=== PATIENT | female | born 1985 | race Caucasian/White ===

== ENCOUNTER 2021-07-15 17:07 | Emergency (ER) | payer SELFPAY ==
[2021-07-15 17:07] VITALS: BP 123/69; PULSE 68; RESP 22; O2SAT 95
--- NOTE | 2021-07-15 17:09 | ED.C_ITS ---
Documented by User: Tacos Dutta DO 07/17/21 06:36 HPI - Psych General: Chief Complaint: Psychiatric Symptoms Stated Complaint: PSYCH EVAL Time Seen by Provider: 07/15/21 17:07 Source: EMS Mode of arrival: EMS Limitations: altered mental status History of Present Illness: 36-year-old female brought in by EMS and physical restraints. She is uncontrollable and unable to redirect her. She was directly moved from the cot to hard restraint bed. She is screaming. She smells strongly of alcohol appears to be significantly intoxicated. EMS had the same experience in route here she was unable to be redirected. She was found underneath a bridge in town. There is no old records and system for her. No evidence of injury at this time. MD complaint: altered mental status Onset (ago): unknown Duration: constant Relieving factors: none Exacerbating factors: none Context: recent alcohol abuse Treatments prior to arrival: physical restraints Review of Systems General: Reports: ROS unobtainable due to mental status [facility] ED PFSH: Medical History (Updated 07/17/21 @ 06:31 by Tacos Dutta DO) Medical history unknown Surgical History (Updated 07/17/21 @ 06:31 by Tacos Dutta DO) Surgical history unknown Social History (Updated 07/17/21 @ 06:32 by Tacos Dutta DO) Smoking and tobacco status: current every day smoker Alcohol intake: current Substance/Drug Use: current Physical Exam Const: GENERAL APPEARANCE: combative ORIENTATION/CONSCIOUSNESS: Yes awake OTHER: Patient babbling incoherently appears acutely intoxicated suspect under the influence of methamphetamines. Patient is in very aggressive and combative tried to bite multiple staff members, myself nursing and security HENMT: COMMON NORMALS: normocephalic and atraumatic HEAD & SCALP: normocephalic and atraumatic Resp: COMMON NORMALS: normal respiratory effort, No retractions, No use of accessory muscles and clear to auscultation bilaterally AUSCULTATION: clear to auscultation bilaterally Cardio: COMMON NORMALS: regular rhythm and No murmurs present (Cardio) RATE: tachycardic RHYTHM: regular rhythm GI: COMMON NORMALS: Soft to palpation and No hepatosplenomegaly present AUSCULTATION: Yes normoactive bowel sounds PALPATION: Yes Soft to palpation, No Tenderness to palpation present (GI), No Guarding due to palpation present (GI) and Yes No hepatosplenomegaly present Extremity: COMMON NORMALS: normal to inspection, capillary refill normal, no clubbing, cyanosis or edema, no calf tenderness and no pedal edema Face to Face: Restrn/Seclusion Events leading up to initiation: Demonstrating self-destructive behavior (cutting, hitting mathew etc.) and Combative/Striking out at staff or others Evaluation of patient's immediate situation: Signs of psychological distress Patient reaction since intervention applied: Continued attempts/displays harmful behavior Recent labs reviewed: No Review of medications: No (Not available) Need for restraint or seclusion is: Continued Attending notified: Yes Course Vital Signs: Vital signs: Vital Signs Pulse Rate 78 07/16/21 03:13 Respiratory Rate 17 07/16/21 03:13 Blood Pressure 114/61 07/16/21 03:13 Pulse Oximetry 97 07/16/21 03:13 MDM - Psych Medical Decision Making On arrival patient was immediately placed in restraints because she was combative and aggressive with staff and could not be redirected she attempted to bite several staff members. She is was able to get out of the restraints several times in security placed a washcloth around her wrist to keep her from pulling out of the restraints and harming herself or others. Initially patient was babbling incoherently. Her clothes were all wet today were removed to prevent hypothermia. Care signed out to Dr. Coles at change of shift. See final notes for diagnosis and disposition. Patient presents here with alcohol intoxication and is homeless. I did observe patient here for 7 hours she is now clinically sober patient was evaluated by Dr. Soto she is not suicidal not homicidal is wanting to go home I feel she is stable for discharge at this time. Lab Data I reviewed the patient's lab results. : 07/15/21 18:47 07/15/21 18:47 Radiology Impressions Chest X-Ray 07/15/21 17:16 IMPRESSION: No acute findings. Head CT 07/15/21 17:16 IMPRESSION: No acute intracranial abnormality. Laboratory Results WBC 8.2 10^3/uL (4.0-10.0) 07/15/21 18:47 RBC 5.70 10^6/uL (4.1-5.3) H 07/15/21 18:47 Hgb 16.5 g/dL (11.5-15.3) H 07/15/21 18:47 Hct 50.9 % (37.0-47.0) H 07/15/21 18:47 MCV 89.3 fl (81-99) 07/15/21 18:47 MCH 28.9 pg (28.0-34.0) 07/15/21 18: MCHC 32.4 g/dL (30.0-36.0) 07/15/21 18:47 RDW 13.0 % (12.1-15.1) 07/15/21 18:47 Plt Count 277 10^3/cmm (130-400) 07/15/21 18: MPV 11.4 fL (7.4-10.4) H 07/15/21 18:47 Neut % (Auto) 60.9 % 07/15/21 18: Lymph % (Auto) 32.8 % 07/15/21 18:47 [place] % (Auto) 4.5 % 07/15/21 18:47 Eos % (Auto) 1.1 % 07/15/21: Baso % (Auto) 0.6 % 07/15/21: Neut # (Auto) 5.00 10^3/uL (1.8-7.7) 07/15/21 18: Lymph # (Auto) 2.7 10^3/uL (0.8-4.8) 07/15/21 18: [place] # (Auto) 0.4 10^3/uL (0.2-0.9) 07/15/21 18:47 Eos # (Auto) 0.1 10^3/uL (0.0-0.8) 07/15/21 18: Baso # (Auto) 0.1 10^3/uL (0.0-0.1) 07/15/21: Nucleated RBC % (auto) 0 % 07/15/21: Nucleated RBCs # 0.0 /100WBC 07/15/21 18: Sodium 142 mmol/L (136-145) 07/15/21 18: Potassium 3.6 mmol/L (3.5-5.1) 07/15/21 18:47 Chloride 105 mmol/L (98-107) 07/15/21 18:47 Carbon Dioxide 20 mmol/L (22-29) L 07/15/21 18:47 Anion Gap 20.6 (5-19) H 07/15/21 18:47 BUN 9 mg/dL (6-20) 07/15/21 18:47 Creatinine 0.6 mg/dL (0.5-0.9) 07/15/21 18:47 GFR Calculation 114.4 mL/min (90-130) 07/15/21 18:47 Glucose 181 mg/dL (65-115) H 07/15/21 18:47 Calculated Osmolality 297 mOsm/kg (285-295) H 07/15/21 18:47 Calcium 9.9 mg/dL (8.5-10.5) 07/15/21 18:47 Total Bilirubin 0.2 mg/dL (0.15-1.2) 07/15/21 18:47 AST 23 U/L (0-32) 07/15/21 18:47 ALT 25 U/L (0-33) 07/15/21 18:47 Alkaline Phosphatase 140 IU/L (35-105) H 07/15/21 18:47 Total Protein 9.8 g/dL (6.6-8.7) H 07/15/21 18:47 Albumin 5.2 g/dL (3.5-5.2) 07/15/21 18:47 Globulin 4.6 g/dL (1.3-4.6) 07/15/21 18:47 HCG, Qual Negative (Negative) 07/15/21 18:47 Urine Color Yellow (Yellow) 07/15/21 18:50 Urine Appearance Clear (CLEAR) 07/15/21 18:50 Urine pH 5 (5-7) 07/15/21 18:50 Ur Specific [place] 1.010 (1.005-1.030) 07/15/21 18:50 Urine Protein Trace (Negative) 07/15/21 18:50 Urine Glucose (UA) Norm (Normal) 07/15/21 18:50 Urine Ketones Negative (Negative) 07/15/21 18:50 Urine Blood Trace (Negative) H 07/15/21 18:50 Urine Nitrate Negative (Negative) 07/15/21 18:50 Urine Bilirubin Neg (Negative) 07/15/21 18:50 Urine Urobilinogen Norm mg/dL (Negative) 07/15/21 18:50 Ur Leukocyte Esterase Negative (Negative) 07/15/21 18:50 Urine RBC 0-4 /hpf (0-2) H 07/15/21 18:50 Urine WBC 0-4 /hpf (0-5) H 07/15/21 18:50 Ur Squamous Epith Cells 5-10 /hpf (0-5) H 07/15/21 18:50 Amorphous Sediment 2+ /hpf 07/15/21 18:50 Urine Bacteria 1+ /hpf (NONE) H 07/15/21 18:50 Salicylates < 0.3 mg/dL (3-10) L 07/15/21 18:47 Urine Opiates Screen Negative ng/mL (Negative) 07/15/21 18:50 Acetaminophen < 5.0 ug/mL (10-30) L 07/15/21 18:47 Ur Barbiturates Screen Negative ng/mL (Negative) 07/15/21 18:50 Ur Phencyclidine Scrn Negative ng/mL (Negative) 07/15/21 18:50 Ur Amphetamines Screen Negative ng/mL (Negative) 07/15/21 18:50 U Benzodiazepines Scrn Negative ng/mL (Negative) 07/15/21 18:50 Urine Cocaine Screen Negative ng/mL (Negative) 07/15/21 18:50 U Marijuana (THC) Screen Negative ng/mL (Negative) 07/15/21 18:50 Ethyl Alcohol 260 mg/dL (0-10) H 07/15/21 18:47 Discharge Plan Discharge Patient Disposition: Home Clinical Impression: Alcohol intoxication Condition: Stable Discharge Orders: Discharge ED (Routine); Ordered 07/16/21 Ordered By: Roberto Carlos Coles Discharge Diet: Advance as tolerated Discharge Activity: Resume usual activity Patient Instructions: Alcohol Intoxication (ED) Coding Level of Care Code 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 Documented by User: Roberto Carlos Coles MD 07/16/21 03:22 HPI - Psych General: Chief Complaint: Psychiatric Symptoms Stated Complaint: PSYCH EVAL Time Seen by Provider: 07/15/21 17:07 [facility] ED PFSH: Medical History (Updated 07/17/21 @ 06:31 by Tacos Dutta DO) Medical history unknown Surgical History (Updated 07/17/21 @ 06:31 by Tacos Dutta DO) Surgical history unknown Social History (Updated 07/17/21 @ 06:32 by Tacos Dutta DO) Smoking and tobacco status: current every day smoker Alcohol intake: current Substance/Drug Use: current Course Vital Signs: Vital signs: Vital Signs Pulse Rate 78 07/16/21 03:13 Respiratory Rate 17 07/16/21 03:13 Blood Pressure 114/61 07/16/21 03:13 Pulse Oximetry 97 07/16/21 03:13 MDM - Psych Medical Decision Making Patient presents here with alcohol intoxication and is homeless. I did observe patient here for 7 hours she is now clinically sober patient was evaluated by Dr. Soto she is not suicidal not homicidal is wanting to go home I feel she is stable for discharge at this time. Lab Data : 07/15/21 18:47 07/15/21 18:47 Radiology Impressions Chest X-Ray 07/15/21 17:16 IMPRESSION: No acute findings. Head CT 07/15/21 17:16 IMPRESSION: No acute intracranial abnormality. Laboratory Results WBC 8.2 10^3/uL (4.0-10.0) 07/15/21 18:47 RBC 5.70 10^6/uL (4.1-5.3) H 07/15/21 18:47 Hgb 16.5 g/dL (11.5-15.3) H 07/15/21 18:47 Hct 50.9 % (37.0-47.0) H 07/15/21 18:47 MCV 89.3 fl (81-99) 07/15/21 18:47 MCH 28.9 pg (28.0-34.0) 07/15/21 18:47 MCHC 32.4 g/dL (30.0-36.0) 07/15/21 18:47 RDW 13.0 % (12.1-15.1) 07/15/21 18:47 Plt Count 277 10^3/cmm (130-400) 07/15/21 18:47 MPV 11.4 fL (7.4-10.4) H 07/15/21 18:47 Neut % (Auto) 60.9 % 07/15/21 18:47 Lymph % (Auto) 32.8 % 07/15/21 18:47 [place] % (Auto) 4.5 % 07/15/21 18:47 Eos % (Auto) 1.1 % 07/15/21 18:47 Baso % (Auto) 0.6 % 07/15/21 18:47 Neut # (Auto) 5.00 10^3/uL (1.8-7.7) 07/15/21 18:47 Lymph # (Auto) 2.7 10^3/uL (0.8-4.8) 07/15/21 18:47 [place] # (Auto) 0.4 10^3/uL (0.2-0.9) 07/15/21 18:47 Eos # (Auto) 0.1 10^3/uL (0.0-0.8) 07/15/21 18:47 Baso # (Auto) 0.1 10^3/uL (0.0-0.1) 07/15/21 18:47 Nucleated RBC % (auto) 0 % 07/15/21 18:47 Nucleated RBCs # 0.0 /100WBC 07/15/21 18:47 Sodium 142 mmol/L (136-145) 07/15/21 18:47 Potassium 3.6 mmol/L (3.5-5.1) 07/15/21 18:47 Chloride 105 mmol/L (98-107) 07/15/21 18:47 Carbon Dioxide 20 mmol/L (22-29) L 07/15/21 18:47 Anion Gap 20.6 (5-19) H 07/15/21 18:47 BUN 9 mg/dL (6-20) 07/15/21 18:47 Creatinine 0.6 mg/dL (0.5-0.9) 07/15/21 18:47 GFR Calculation 114.4 mL/min (90-130) 07/15/21 18:47 Glucose 181 mg/dL (65-115) H 07/15/21 18:47 Calculated Osmolality 297 mOsm/kg (285-295) H 07/15/21 18:47 Calcium 9.9 mg/dL (8.5-10.5) 07/15/21 18:47 Total Bilirubin 0.2 mg/dL (0.15-1.2) 07/15/21 18:47 AST 23 U/L (0-32) 07/15/21 18:47 ALT 25 U/L (0-33) 07/15/21 18:47 Alkaline Phosphatase 140 IU/L (35-105) H 07/15/21 18:47 Total Protein 9.8 g/dL (6.6-8.7) H 07/15/21 18:47 Albumin 5.2 g/dL (3.5-5.2) 07/15/21 18:47 Globulin 4.6 g/dL (1.3-4.6) 07/15/21 18:47 HCG, Qual Negative (Negative) 07/15/21 18:47 Urine Color Yellow (Yellow) 07/15/21 18:50 Urine Appearance Clear (CLEAR) 07/15/21 18:50 Urine pH 5 (5-7) 07/15/21 18:50 Ur Specific [place] 1.010 (1.005-1.030) 07/15/21 18:50 Urine Protein Trace (Negative) 07/15/21 18:50 Urine Glucose (UA) Norm (Normal) 07/15/21 18:50 Urine Ketones Negative (Negative) 07/15/21 18:50 Urine Blood Trace (Negative) H 07/15/21 18:50 Urine Nitrate Negative (Negative) 07/15/21 18:50 Urine Bilirubin Neg (Negative) 07/15/21 18:50 Urine Urobilinogen Norm mg/dL (Negative) 07/15/21 18:50 Ur Leukocyte Esterase Negative (Negative) 07/15/21 18:50 Urine RBC 0-4 /hpf (0-2) H 07/15/21 18:50 Urine WBC 0-4 /hpf (0-5) H 07/15/21 18:50 Ur Squamous Epith Cells 5-10 /hpf (0-5) H 07/15/21 18:50 Amorphous Sediment 2+ /hpf 07/15/21 18:50 Urine Bacteria 1+ /hpf (NONE) H 07/15/21 18:50 Salicylates < 0.3 mg/dL (3-10) L 07/15/21 18:47 Urine Opiates Screen Negative ng/mL (Negative) 07/15/21 18:50 Acetaminophen < 5.0 ug/mL (10-30) L 07/15/21 18:47 Ur Barbiturates Screen Negative ng/mL (Negative) 07/15/21 18:50 Ur Phencyclidine Scrn Negative ng/mL (Negative) 07/15/21 18:50 Ur Amphetamines Screen Negative ng/mL (Negative) 07/15/21 18:50 U Benzodiazepines Scrn Negative ng/mL (Negative) 07/15/21 18:50 Urine Cocaine Screen Negative ng/mL (Negative) 07/15/21 18:50 U Marijuana (THC) Screen Negative ng/mL (Negative) 07/15/21 18:50 Ethyl Alcohol 260 mg/dL (0-10) H 07/15/21 18:47 Discharge Plan Discharge Patient Disposition: Home Clinical Impression: Alcohol intoxication Condition: Stable Discharge Orders: Discharge ED (Routine); Ordered 07/16/21 Ordered By: Roberto Carlos Coles Discharge Diet: Advance as tolerated Discharge Activity: Resume usual activity Patient Instructions: Alcohol Intoxication (ED) Coding Level of Care Code 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
[2021-07-15] MEDS: ziprasidone 20 mg/mL SDV 10 MG IM (17:10)
[2021-07-15] MEDS: LORazepam 2 mg/mL INJ 1 mL IM (17:10)
[2021-07-15] MEDS: diphenhydrAMINE 50 mg/mL SDV 1mL IM (17:11)
--- NOTE | 2021-07-15 17:16 | XRR_ITS ---
PROCEDURE INFORMATION: Exam: XR Chest Exam date and time: 07/15/2021 6:45 PM Age: 36 years old Clinical indication: Cough; Additional info: Dyspnea/cough TECHNIQUE: Imaging protocol: XR of the chest. Views: 1 view. COMPARISON: No relevant prior studies available. FINDINGS: Lungs: Unremarkable. No consolidation. Pleural spaces: Unremarkable. No pleural effusion. No pneumothorax. Heart/Mediastinum: Unremarkable. No cardiomegaly. Bones/joints: Unremarkable. XR/XR chest 1V portable [id number] IMPRESSION: No acute findings.
--- NOTE | 2021-07-15 17:16 | CTR_ITS ---
PROCEDURE INFORMATION: Exam: CT Head Without Contrast Exam date and time: 07/15/2021 6:15 PM Age: 36 years old Clinical indication: Altered mental status/memory loss; Confusion or disorientation; Patient HX: AMS / combative - sedated TECHNIQUE: Imaging protocol: Computed tomography of the head without contrast. Radiation optimization: All CT scans at this facility use at least one of these dose optimization techniques: automated exposure control; mA and/or kV adjustment per patient size (includes targeted exams where dose is matched to clinical indication); or iterative reconstruction. COMPARISON: No relevant prior studies available. RADIATION DOSE METRICS: Total DLP (mGy-cm): 2554.37 FINDINGS: Brain: Normal. No hemorrhage. Unremarkable white matter. No mass effect. Cerebral ventricles: No ventriculomegaly. Paranasal sinuses: Polyp or retention cyst in the right maxillary sinus. Mild mucosal thickening in the maxillary and ethmoid sinuses. No air-fluid level. Mastoid air cells: Visualized mastoid air cells are well aerated. Bones/joints: Unremarkable. No acute fracture. Soft tissues: Unremarkable. CT/CT head wo con* [id number] IMPRESSION: No acute intracranial abnormality.
--- NOTE | 2021-07-15 18:41 | PC.NURSE ---
Restraints placed on patient at 1705, patient given medication to help aggressive behavior at 1710. Patient when brought in by EMS was aggressive, speaking words that did not make sense to others, patient attempting to bite provider and information security analyst. patient placed in restraints per provider verbal order for patient safety and staff safety. Patient pulse, motor and sensation assessed. 1715 appropriate PMS in all 4 extremities. 1730 appropriate PMS in all 4 extremities. 1745 appropriate PMS in all 4 extremities. 1800 patient was able to remove herself from her hand restraints, provider at bedside placed wash cloth for protection of skin and placement of restraint. 1815 pms appropriate, right extremity having break for restraint at this time. 1830 Pms appropriate. 1845 pms appropriate. Patient breathing even and non-labored. Patient resting with eyes closed. Patient snoring at times. Patient vitals stable. Patient removed from restraints at 1850. Patient extremities appropriate PMS in all 4 extremities. Sitter at bedside.
[2021-07-15 18:56] LABS: Basophils # 0.1 10^3/uL (0.0-0.1); Basophils % 0.6 %; Eosinophils # 0.1 10^3/uL (0.0-0.8); Eosinophils % 1.1 %; Hematocrit 50.9 % (37.0-47.0); Hemoglobin 16.5 g/dL (11.5-15.3); Lymphocytes # 2.7 10^3/uL (0.8-4.8); Lymphocytes % 32.8 %; Mean Corpuscular HGB Conc 32.4 g/dL (30.0-36.0); Mean Corpuscular Hemoglobin 28.9 pg (28.0-34.0); Mean Corpuscular Volume 89.3 fl (81-99); Mean Platelet Volume 11.4 fL (7.4-10.4); Monocytes # 0.4 10^3/uL (0.2-0.9); Monocytes % 4.5 %; Neutrophils % 60.9 %; Nucleated Red Blood Cells % 0 %; Platelet Count 277 10^3/cmm (130-400); White Blood Count 8.2 10^3/uL (4.0-10.0)
[2021-07-15 19:13] LABS: HCG, Serum Qual Negative (Negative)
[2021-07-15 19:14] LABS: Alanine Aminotransferase 25 U/L (0-33); Albumin Level 5.2 g/dL (3.5-5.2); Alcohol Level 260 mg/dL (0-10); Alkaline Phosphatase 140 IU/L (35-105); Aspartate Amino Transferase 23 U/L (0-32); Blood Urea Nitrogen 9 mg/dL (6-20); Calcium 9.9 mg/dL (8.5-10.5); Carbon Dioxide 20 mmol/L (22-29); Chloride 105 mmol/L (98-107); Globulin 4.6 g/dL (1.3-4.6); Glomerular Filtration Rate 114.4 mL/min (90-130); Glucose 181 mg/dL (65-115); Osmolality Calculated 297 mOsm/kg (285-295); Sodium 142 mmol/L (136-145); Total Bilirubin 0.2 mg/dL (0.15-1.2); Total Protein 9.8 g/dL (6.6-8.7)
[2021-07-15 19:16] LABS: Acetaminophen < 5.0 ug/mL (10-30); Salicylate < 0.3 mg/dL (3-10)
[2021-07-15 19:17] LABS: Anion Gap 20.6 (5-19); Potassium 3.6 mmol/L (3.5-5.1)
[2021-07-15 19:25] LABS: Add Urine Microscopic? YES; Bilirubin Urine Neg (Negative); Blood Urine Trace (Negative); Glucose Urine UA Norm (Normal); Ketones Urine Negative (Negative); Leukocyte Esterase Urine Negative (Negative); Nitrate Urine Negative (Negative); Protein Urine Trace (Negative); Urine Appearance Clear (CLEAR); Urine Color Yellow (Yellow); Urobilinogen Urine Norm (Negative); pH Urine 5 (5-7)
[2021-07-15 19:34] LABS: Amphetamines Screen Urine Negative (Negative); Barbiturates Screen Urine Negative (Negative); Benzodiazepines Screen Urine Negative (Negative); Cocaine Screen Urine Negative (Negative); Opiate Screen Urine Negative (Negative); PCP Screen Urine Negative (Negative); THC Screen Urine Negative (Negative)
[2021-07-15 19:35] LABS: Add Urine Culture? No; Amorphous Sediment Urine 2+ /hpf; Bacteria Urine 1+ /hpf; RBC Urine 0-4 /hpf (0-2); WBC Urine 0-4 /hpf (0-5)
[2021-07-15 19:38] VITALS: BP 95/62; PULSE 65; RESP 18; O2SAT 96
[2021-07-15 22:10] VITALS: BP 99/59; PULSE 67; RESP 18; O2SAT 98
[2021-07-16 00:08] VITALS: BP 114/61; PULSE 78; RESP 17; O2SAT 97
[2021-07-16 03:13] VITALS: BP 114/61; PULSE 78; RESP 17; O2SAT 97
== END 2021-07-16 03:16 | disposition home or self-care (01) ==
PROVIDERS: Family Medicine; Emergency Provider Emergency Medicine
DX: F10.129 Alcohol abuse with intoxication, unspecified (principal); Y90.8 Blood alcohol level of 240 mg/100 ml or more; F17.200 Nicotine dependence, unspecified, uncomplicated
CPT/HCPCS: 70450; 71045; 80053; 80306; 80307; 81001; 84703; 85025; 96372; 99284; J1200; J2060; J3486